=== PATIENT | male | born 2000 | race Caucasian/White ===

== ENCOUNTER 2025-01-03 14:50 | Outpatient (REF) | payer BC, SELFPAY ==
[2025-01-03 18:17] LABS: MANUAL DIFF FLAG NO
[2025-01-03 18:27] LABS: Appearance Urine Clear; Glucose Urine UA Negative (Negative); PH 7.5 (5.0-9.0); Specific Gravity - Urine 1.020 (1.005-1.025)
[2025-01-03 18:35] LABS: Hematocrit 47.1 % (42.0-52.0); Hemoglobin 15.6 g/dl (14.0-18.0); Imm Gran Abs Auto 0.01 X10*3/uL (0.00-0.03); Imm Gran Pct Auto 0.2 % (0.0-0.4); Lymphocytes Absolute Auto 2.2 X10*3/uL (1.2-4.9); Mean Corpuscular HGB Conc 33.1 g/dl (31.0-36.0); Mean Corpuscular Hemoglobin 30.0 pg (27.0-33.0); Mean Corpuscular Volume 90.6 fL (80.0-98.0); NRBC Abs Auto 0.000 X10*3/uL (0.0-0.012); NRBC Pct Auto 0.0 /100WBC (0.0-0.2); Platelet Count 153 X10*3/uL (160-400); Red Blood Count 5.20 X10*6/uL (4.60-5.80); White Blood Count 4.3 X10*3/uL (4.8-10.8)
[2025-01-03 18:46] LABS: Alanine Aminotransferase 22 U/L (0-40); Albumin Level 5.2 g/dL (3.5-5.0); Anion Gap 14 (12-20); Aspartate Amino Transferase 18 U/L (5-37); Blood Urea Nitrogen 15 mg/dL (9-16); Calcium 9.5 mg/dL (8.4-10.2); Carbon Dioxide 25 mmol/L (22-29); Chloride 107 mmol/L (96-108); Cholesterol 140 mg/dL (<200); Estimated Glomerular Filt Rate > 60; HDL Cholesterol 49 mg/dL (>40); Potassium 4.1 mmol/L (3.3-5.1); Sodium 142 mmol/L (135-145); Total Protein 7.5 g/dL (6.5-8.0); Triglycerides 117 mg/dL (<150)
[2025-01-03 19:45] LABS: Alkaline Phosphatase 53 U/L (39-117)
[2025-01-04 04:22] LABS: Syphilis Screen Nonreactive (Nonreactive)
[2025-01-04 04:40] LABS: CT PCR Urine NOT DETECTED (Not Detect.); NG PCR Urine NOT DETECTED (Not Detect.)
[2025-01-04 04:41] LABS: HBS Num1 0.78 mIU/mL (0-7.99); HBc Num1 0.09 S/CO (0.00-0.79); HBsAGNum1 0.40 S/CO (0.00-0.99); HIV Num 1 0.07 S/CO (0.00-0.99); Hepatitis B Surface Antigen Negative (Negative); ~HepC Num1 0.07 S/CO (0.00-0.79); ~Hepatitis B Surface Antibody NONREACTIVE (Nonreactive); ~Hepatitis C Antibody Nonreactive (Nonreactive)
== END 2025-01-03 14:51 | disposition home or self-care (01) ==
LOC: HO.WFDLDS 14:50
PROVIDERS: PCP Family Medicine; Visit Provider Family Medicine
DX: Z00.00 Encounter for general adult medical examination without abnormal findings (principal); I10 Essential (primary) hypertension; K82.8 Other specified diseases of gallbladder; Z87.440 Personal history of urinary (tract) infections; Z20.2 Contact with and (suspected) exposure to infections with a predominantly sexual mode of transmission
CPT/HCPCS: 80053; 80061; 81003; 82043; 82570; 84443; 85025; 86704; 86706; 86780; 86803; 87340; 87389; 87491; 87591; 96127

== ENCOUNTER 2025-01-03 14:50 | Outpatient (AMB) | payer BC, SELFPAY ==
--- NOTE | 2025-01-03 14:56 | MHC.PC.OV ---
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 ?? Prior PCP:? No Prior PCP Last office visit/CPE:? Pedi about 7 yrs ago Acute issue(s):? March at ED [facility] had Urinary infection. Also imaging showed enlarged GB. ?? Pt notes h/o UTI, Enlarged kidney & GB issues. Will request prior notes. PMHx:? Denies except as above SurgHx:?[place] teeth, Tonsils. FHx:?Mom: HTN. Dad: HTN, DM. SocHx: Nonsmoker. EtOH: a few drinks once a month. MJ daily. No other drugs. PFSH Surgical History (Updated 01/03/25 @ 15:12 by Norah Elizabeth CMA) [place] teeth removed Hx of tonsillectomy Family History (Updated 01/03/25 @ 15:04 by Norah Elizabeth CMA) Mother Hypertension Father Hypertension Diabetes Social History (Updated 01/03/25 @ 15:07 by Norah Elizabeth CMA) Housing: House Alcohol intake: current Patient Tobacco Use Status: Current everyday Tobacco user (Tobacco Blunts) e-Cigarette/Vaping Use: Former Use Second Hand Smoke Exposure: Yes Use of substances other than those prescribed or required for medical reasons: Yes Substance Use Type: Marijuana service: No Current occupational status: employed Current occupation: [employer] Current occupational exposures/hazards: No Cognitive needs: No Hearing needs: No Vision needs: No Questionnaire PHQ-9 Over the last 2 weeks, how often have you been bothered by any of the following problems? 1. Little interest or pleasure in doing things: not at all 2. Feeling down, depressed, or hopeless: not at all 3. Trouble falling or staying asleep, or sleeping too much: not at all 4. Feeling tired or having little energy: not at all 5. Poor appetite or overeating: not at all 6. Feeling bad about yourself - or that you are a failure or have let yourself or your family down: not at all 7. Trouble concentrating on things, such as reading the newspaper or watching television: not at all 8. Moving or speaking so slowly that other people could have noticed. Or the opposite - being so fidgety or restless that you have been moving around a lot more than usual: not at all 9. Thoughts that you would be better off or of hurting yourself in some way: not at all Total score: 0 Depression Screening Interpretation: Negative Depression Screening Done: Yes 43180 - PHQ-9 Billing: Yes Source: Developed by Drs. Maximo Zhou, Sherri Crespo, Alvin Galicia and colleagues, with an educational alyx from [employer]. Thrive Questionnaire Date Thrive assessed: 01/03/25 I am a: Patient What is your living situation today?: I have a steady place to live Within the past 12 months, did the food you bought not last and you didn't have the money to get more?: I choose not to answer this question Within the past 12 months, did you worry whether your food would run out before you got money to buy more?: I choose not to answer this question Do you have trouble paying for medicines?: No Do you have trouble getting transportation to medical appointments?: No Do you have trouble paying your heating and electricity bill?: No Do you have trouble taking care of your child, family member or friend?: No Do you have trouble with day-to-day activities such as bathing, preparing meals, shopping, managing finances, etc.?: No Are you currently unemployed and looking for a job?: No Are you interested in more education?: I choose not to answer this question Please select the resources that you would like help with: None Currently or been in a relationship where the following occur: I choose not to answer THRIVE Score: 0 AUDIT C Alcohol Use Questionnaire (AUDIT-C) 1. How often do you have a drink containing alcohol?: Monthly or less 2. How many drinks containing alcohol do you have on a typical day when you are drinking?: 3 or 4 3. How often do you have six or more drinks on one occasion?: Never Total Score: 2 DUYEN-7 AMB Questionnaire DUYEN-7 Date DUYEN - 7 assessed: 01/03/25 Feeling nervous, anxious, or on edge: 0 = Not at all Not being able to stop or control worryin = Not at all Worrying too much about different things: 0 = Not at all Trouble relaxin = Not at all Being so restless that it is hard to sit still: 0 = Not at all Becoming easily annoyed or irritable: 0 = Not at all Feeling afraid as if something awful might happen: 0 = Not at all Total DUYEN-7 score (0-4 normal; 5-9 mild; 10-14 moderate; 15-21 severe): 0 Source: Developed by Drs. Maximo Zhou, Sherri Crespo, Alvin Galicia and colleagues, with an educational alyx from [employer]. DUYEN-7 Assessment Billing DUYEN-7 Assessment Tool: DUYEN-7 Assessment 83743 Review of Systems Const Denies chills, Denies fatigue, Denies fever(s), Denies headache(s) and Denies weakness ENT Denies dizziness and Denies headache(s) Card Denies dyspnea Resp Denies cough, Denies dyspnea, Denies wheezing and Denies other (shortness of breath) Musc Denies numbness and Denies tingling Neuro Denies dizziness, Denies headache(s), Denies numbness, Denies tingling and Denies weakness Psych Denies anxiety and Denies depression Endo Denies fatigue Aller/Immun Denies wheezing Physical exam (Primary Care) Vital Signs: Last Vital Signs Temp 98.3 F 01/03/25 15:04 Pulse 62 01/03/25 15:04 Resp 14 01/03/25 15:04 BP 116/72 01/03/25 15:04 Pulse Ox 98 01/03/25 15:04 Oxygen Delivery Method Room Air 01/03/25 15:04 BMI result Body Mass Index 22.7 Tobacco/Smoking Status: Tobacco use Status Tobacco use date assessed 01/03/25 01/03/25 15:02 Patient Tobacco Use Status Current everyday Tobacco ( 01/03/25 15:07 Tobacco Blunts) e-Cigarette/Vaping Use Former Use 01/03/25 15:07 PHQ-9: PHQ-9 Score PHQ-9: Total score 0 01/03/25 15:02 Depression Screening Interpretation: Negative Thrive Assessment: Date of Thrive Assessment Date Thrive assessed 01/03/25 01/03/25 14:58 Currently or been in a relationship where the following occur: I choose not to answer Const General: well developed; No acute distress Nutritional Appearance: well nourished Orientation/consciousness: patient oriented x3 HENMT Head: Yes normocephalic and Yes atraumatic Eyes General: appearance normal, both eyes and all related structures Pupils: Equal, round and reactive pupils present EOM: EOMs intact bilaterally Resp Effort & Inspection: normal respiratory effort Auscultation: clear to auscultation bilaterally Cardio Rate: regular rate Rhythm: regular rhythm Heart sounds: S1 normal heart sound present, S2 normal heart sound present, no gallops, no murmurs and no rubs Neuro General: patient oriented x3 and gait normal Cranial nerves: Yes Equal, round and reactive pupils present Psych Affect: normal affect Coding Level of Care Code New Pt Level 3 (54920) Diagnoses History of UTI Z87.440 Enlarged gallbladder K82.8 Laboratory exam ordered as part of routine general medical examination Z00.00 Additional Codes DUYEN-7 Assessment Billing - DUYEN-7 Assessment Tool: DUYEN-7 Assessment 67924 ([id number]) PHQ-9 - 50338 - PHQ-9 Billing: Yes ([id number]) Assessment & Plan Assessment & Plan (1) History of UTI: Code(s): Z87.440 - Personal history of urinary (tract) infections Category: Medical (2) Enlarged gallbladder: Code(s): K82.8 - Other specified diseases of gallbladder Category: Medical (3) Laboratory exam ordered as part of routine general medical examination: Code(s): Z00.00 - Encounter for general adult medical examination without abnormal findings Category: Medical Plan Pt notes h/o UTI, Enlarged kidney & GB issues. Will request prior notes from [facility] ED He will return in a few months for CPE with follow-up labs Orders: Orders Comprehensive Stanley. Panel Fast Today Z00.00 - Encounter for general adult medical examination without abnormal findings Complete Blood Count Auto Diff Today Z00.00 - Encounter for general adult medical examination without abnormal findings TSH reflex Free T4 Today Z00.00 - Encounter for general adult medical examination without abnormal findings UA CC w/rflx Micro + Cult Today Z00.00 - Encounter for general adult medical examination without abnormal findings Hepatitis B,C Profile Today Z11.3 - Encounter for screening for infections with a predominantly sexual mode of transmission Lipid Panel Today Z00.00 - Encounter for general adult medical examination without abnormal findings Microalbumin, Random (w Creat) Today I10 - Essential (primary) hypertension CT NG by PCR Urine Today Z11.3 - Encounter for screening for infections with a predominantly sexual mode of transmission HIV Ab/Ag Today Z11.3 - Encounter for screening for infections with a predominantly sexual mode of transmission Syphilis Screen Today Z11.3 - Encounter for screening for infections with a predominantly sexual mode of transmission
[2025-01-03 15:04] VITALS: BP 116/72; PULSE 62; RESP 14; TEMP 36.8; O2SAT 98; BMI 22.7
--- OUTSIDE RECORDS SUMMARY | 2025-01-03 18:33 | XMS_ITS | Encounter Summary ---
Author Organization [facility] Address [address] [place] [phone] Phone Care Team Providers Care Director Of Employee Development Name Role Phone Maximo Woo MD Primary Care Provider [phone] Encounter Details Date Type Department Care Team (Late st Contact Info) Description 05/09/[address] [facility] [place] [address] [place] [address] Family Medicine, Physician [address] [place] [address] Social History Tobacco Use Types Packs/Day Years Used Date Smoking Tobacco: Never Assessed Sex and Gender Information Value Date Recorded Sex Assigned at Not on file Legal Sex Male 6:19 PM EDT Gender Identity Not on file Sexual Orientation Not on file documented as of this encounter Plan of Treatment Not on file documented as of this encounter Visit Diagnoses Not on filedocumented in this encounter Care Teams Director Of Employee Development Relationship Specialty Start Date End Date Maximo Woo MD [address] [place] [address] PCP - General 07/28/17 02/01/24 documented as of this encounter
--- OUTSIDE RECORDS SUMMARY | 2025-01-03 18:33 | XMS_ITS | Clinical Summary ---
Author Organization [facility] Address [address] [place] [phone] Phone Care Team Providers Care Information Director Name Role Phone Unavailable Primary Care Provider Unavailabl e Immunizations Immunization Administration Dates Next Due DTaP 07/24/2003, 0,1998, 999,1998 HPV Vaccine 9 Valent 12/13/2015,08/12/2015,06/09 Hep A, Adult 12/22/2017,12/22/2017,06/10/2017 Hep B, ped/adol 02/04/1999,1998,1998 Hib (PRP-T) 08/21/1999, 9,1998, 999 IPV 07/24/2003, 0,1998, 999 MMR 05/16/2002,05/27/1999 Meningococcal Conj (Menactra) MCV4P 06/07/2014,0 05/09/2009 Tdap 05/09/2009 Varicella 05/08/2008,08/21/1999 Family History Relation Name Status Comments Father Alive CAD triple bypa ss, hyperlipidemia, hypertension diagnosed with HEART DISEASE NOS Maternal Grandfather Maternal Grandmother Mother Alive healthy Paternal Grandfather Paternal Grandmother Social History Tobacco Use Types Packs/Day Years Used Date Smoking Tobacco: Never Assessed Sex and Gender Information Value Date Recorded Sex Assigned at Not on file Legal Sex Male 6:19 PM EDT Gender Identity Not on file Sexual Orientation Not on file Last Filed Vital Signs Vital Sign Reading Time Taken Comments Blood Pressure 124/64 06/10/2017 12:00 AM EDT Pulse - - Temperature 37.7 C (99.9 F) 06/07/2014 12:00 AM EDT Respiratory Rate - - Oxygen Saturation - - Inhaled Oxygen Concentration - - Weight 71.9 kg (158 lb 9.6 oz) 06/10/2017 12:00 AM EDT Height 175.3 cm (5' 9 ) 06/10/2017 12:00 AM EDT Body Mass Index 23.42 06/10/2017 12:00 AM EDT Plan of Treatment Health Maintenance Due Date Last Done Comments DTaP,Tdap,and Td Vaccines (7 - Td or Tdap) 05/09/2019 05/09/2009, 07/24/2003, 08/21/1999, Additional history exists Influenza Vaccines (#1) 2024 COVID-19 Vaccine ( season) 2024 Hepatitis B Vaccines Completed 02/04/1999, 1998, 1998 HIB Vaccines Completed 08/21/1999, 10/20, 1998, Additional history exists MMR Vaccines Completed 05/16/2002, 05/27/1999 IPV Vaccines Completed 07/24/2003, 09/1999, 1998, Additional history exists Varicella Vaccines Completed 05/08/2008, 08/21/1999 Meningococcal Vaccine Completed 06/07/2014, 010 HPV Vaccines Completed 12/13/2015, 07/21, 06/10/2015 Hepatitis A Vaccines Aged Out 12/22/2017, 12/22/2017, 06/10/2017 No longer eligible based on patient's age to complete this topic Men B Vaccine Aged Out No longer elig ible based on patient's age to complete this topic Pneumococcal Vaccine Aged Out No long er eligible based on patient's age to complete this topic Insurance [facility] NON PCC
--- OUTSIDE RECORDS SUMMARY | 2025-01-03 18:33 | XMS_ITS | Encounter Summary ---
Author Organization [facility] Address [address] [place] [address] Phone Care Team Providers Care Coal Sample Tester Name Role Phone Maximo Woo MD Primary Care Provider Encounter Details Date Type Department Care Team (Late st Contact Info) Description 04/27/2009 Documentation [facility] [place] [address] [place] [address] Family Medicine, Physician [address] [place] [address] Social History Tobacco Use Types Packs/Day Years [...] on filedocumented in this encounter Care Teams Coal Sample Tester Relationship Specialty Start Date End Date Maximo Woo MD [address] [place] [address] PCP - General 07/28/17 02/01/24 documented as of this encounter
--- OUTSIDE RECORDS SUMMARY | 2025-01-03 18:33 | XMS_ITS | Encounter Summary ---
Author Organization [facility] Address [address] [place] [phone] Phone Care Team Providers Care Counter Control Operator Name Role Phone Maximo Woo MD Primary Care Provider [phone] Encounter Details Date Type Department Care Team (Late st Contact Info) Description 08/08/2017 Conversion Encounter [facility] [address] [place] [address] Maximo Woo MD [address] [place] [address] Social History Tobacco Use Types Packs/Day Years [...] on filedocumented in this encounter Care Teams Counter Control Operator Relationship Specialty Start Date End Date Maximo Woo MD [address] [place] [address] PCP - General 07/28/17 02/01/24 documented as of this encounter
== END 2025-01-03 15:53 | disposition home or self-care (01) ==
LOC: HO.HMCFM 14:51
PROVIDERS: PCP Family Medicine; Visit Provider Family Medicine
DX: Z87.440 Personal history of urinary (tract) infections (principal); K82.8 Other specified diseases of gallbladder; Z00.00 Encounter for general adult medical examination without abnormal findings